=== PATIENT | male | born 1990 | race Caucasian/White ===

== ENCOUNTER 2022-10-13 21:56 | Emergency (ER) | payer BC, SELFPAY ==
--- NOTE | 2022-10-13 21:54 | ECG_ITS ---
APPROVED REPORT Bell Maker: Conclusion 1. SINUS BRADYCARDIA WITH SINUS ARRHYTHMIA 2. BORDERLINE ECG 3. UNCONFIRMED REPORT Electronically signed by : Liz Morel, 10/17/2022 12:25:10
[2022-10-13 21:58] VITALS: BP 142/88; PULSE 67; RESP 15; TEMP 37; O2SAT 99; BMI 23.1
--- NOTE | 2022-10-13 22:11 | XR_ITS ---
PROCEDURE INFORMATION: Exam: XR Chest Exam date and time: 10/13/2022 10:12 PM Age: 32 years old Clinical indication: Dyspnea TECHNIQUE: Imaging protocol: Radiologic exam of the chest. Views: 1 view. COMPARISON: No relevant prior studies available. FINDINGS: Lungs: Mild atelectasis noted in the right medial lung base. Lungs are otherwise clear. Pleural spaces: No pleural effusion. No pneumothorax. Heart/Mediastinum: Cardiac silhouette is normal in size for technique. Bones/joints: Age appropriate. IMPRESSION: Right medial basilar atelectasis, otherwise normal exam.
--- NOTE | 2022-10-13 22:11 | HMH.EDGENADL ---
Discharge Plan Disposition Patient Disposition: Home, Self-Care Condition: Good Activity Restrictions/Add. Instructions Additional Instructions/Restrictions: Please follow-up with your primary care provider. Please return to the emergency department if you develop any new or worsening symptoms or become concerned for your health. Clinical Impressions Clinical Impression: Atypical chest pain, Dizziness, Acute dehydration Discharge ED Provider: Nate Melo General Adult HPI <Nate Melo MD - Last Filed: 10/13/22 22:15> General Chief complaint: Chest Pain Stated complaint: Chest Pain Time Seen by Provider: 10/13/22 21:58 Mode of Arrival: Family Vehicle Source of Information: Patient Limitations: No Limitations Description of Symptoms (Recalled from ER Triage Doc. by RN): 32 year old male presents with sharp stabbing chest pain located in the anterior left upper side of his chest; according to him, it is reproducible by touch and aggravated by inspiration. does not radiate. denies n/v/d. denies dyspnea. afebrile. History of Present Illness HPI narrative: Patient is a 32-year-old male present today with multiple complaints. Primarily he is here for chest pain. However earlier today he had an episode of about 2 to 3 hours and felt a little bit dizzy. He had no focal neurologic deficits at that time states his symptoms have completely resolved after having several cups of water. Additionally he has been very stressed out and states that he had chest pain that started about 830 just prior to arrival. Is located left anterior chest wall no radiation into worse with touch breathing and movement. No significant exertional activity preceding today. No diaphoresis or shortness of breath associated with this. No history of coronary disease or cardiopulmonary pathology in the past. No family history of sudden cardiac at a young age. He has had no hemoptysis no lower extremity swelling no recent prolonged immobilizations. No history of DVT or PE. Related Data Allergies Allergy/AdvReac Type Severity Reaction Status Date / Time No Known Allergies Allergy Verified 10/13/22 22:02 [facility] <Nate Melo MD - Last Filed: 10/13/22 22:15> [facility] Disclaimer: The information contained in this section may have been updated after the patient was seen, as this information can be updated by other users. Social History (Updated 10/13/22 @ 22:15 by Nate Melo MD) Smoking Status: Never smoker alcohol intake: never current occupational status: other Travel in the last 8 weeks: None <Nate Melo MD - Last Filed: 10/13/22 22:15> ROS Obtained: Yes All systems reviewed & no additional complaints except as documented Physical Exam <Nate Melo MD - Last Filed: 10/13/22 22:15> General General appearance: alert and in no apparent distress Chest Chest inspection: Present tenderness (Left anterior chest wall tender to palpation worsened with external rotation of the left shoulder) Respiratory Respiratory exam: Present normal lung sounds bilaterally and respiratory distress Cardiovascular Cardiovascular exam: Present regular rate; Absent tachycardia Neurological Exam Neurological exam: Present alert and oriented X3 Medical Decision Making <Nate Melo MD - Last Filed: 10/13/22 22:15> Master Inquiry Pt receiving controlled substance: No Vital Signs: 10/13/22 21:58 Temperature 98.6 F Temperature Source Oral Pulse Rate [Right Brachial] 67 Respiratory Rate 15 Blood Pressure [Right Arm] 142/88 H Blood Pressure Mean [Right Arm] 106 Blood Pressure Source [Right Arm] Automatic Cuff Blood Pressure Position [Right Arm] Sitting 02 Sat by Pulse Oximetry 99 Oxygen Delivery Method Room Air Lab Data Lab Results 10/13/22 21:55: WBC 5.9, RBC 5.53, Hgb 15.5, Hct 49.0, MCV 88.7, MCH 28.0, MCHC 31.6 L, RDW 12.8, Plt Count 204, MPV 8.2, Neut % (Auto) 54.3, Lymph % (Auto) 34.7, Spencer % (Auto) 6.5, Eos % (Auto)
[2022-10-13 22:17] LABS: Basophils % 0.5 % (0.1-2.0); Eosinophils # 0.2 K/mm3 (0.0-0.4); Eosinophils % 3.9 % (0.1-12.0); Hemoglobin 15.5 g/dL (14.1-18.0); Lymphocytes # 2.1 K/mm3 (0.7-4.5); Lymphocytes % 34.7 % (10-50); Mean Corpuscular HGB Conc 31.6 g/dL (31.8-35.4); Mean Corpuscular Volume 88.7 fl (80-94); Mean Platelet Volume 8.2 fl (7.4-10.4); Monocytes # 0.4 K/mm3 (0.1-1.0); Monocytes % 6.5 % (1.7-9.3); Neutrophils # 3.2 K/mm3 (1.8-7.8); Neutrophils % 54.3 % (37.0-80.0); Platelet Count 204 K/mm3 (142-424); Red Blood Count 5.53 M/mm3 (4.60-6.20); Red Cell Distribution Width 12.8 % (11.5-17.5); White Blood Count 5.9 K/mm3 (4.8-10.8)
[2022-10-13 22:32] LABS: Chloride 103 mmol/L (98-107); Potassium 3.9 mmoL/L (3.5-5.1); Sodium 142 mmol/L (136-145)
[2022-10-13 22:35] LABS: Alanine Aminotransferase 29 U/L (12-78); Albumin Level 4.5 g/dl (3.5-5.0); Albumin/Globulin Ratio 1.4 (1.1-1.8); Alkaline Phosphatase 46 U/L (38-126); Anion Gap 9.9 mEq/L (5-15); Aspartate Amino Transferase 30 U/L (17-59); Bilirubin,Total 0.4 mg/dl (0.2-1.3); Blood Urea Nitrogen 24 mg/dl (9-20); Carbon Dioxide 33 mmol/L (22.0-30.0); Creatinine Clearance Estimated 112 mL/min (50-200); Estimated Glomerular Filt Rate 78 ml/min (>60); GFR (African American) 94 ML/MIN (>60); Globulin 3.2 g/dL (1.3-3.2); Total Protein,Serum 7.7 g/dl (6.3-8.2)
[2022-10-13 22:36] LABS: Calcium 9.9 mg/dl (8.4-10.2); Glucose 66 mg/dl (74-100)
[2022-10-13 22:48] LABS: Troponin I < 0.01 ng/ml (0.00-0.034)
--- NOTE | 2022-10-13 22:56 | PC.NURSE ---
Rounded on patient , no concerns voiced at this time.
--- NOTE | 2022-10-13 23:06 | PC.NURSE ---
called and left a message for [facility] to disregard prescriptions.
--- NOTE | 2022-10-13 23:43 | ECG_ITS ---
APPROVED REPORT Coil Machine Supervisor: Conclusion 1. SINUS BRADYCARDIA WITH MARKED SINUS ARRHYTHMIA 2. BORDERLINE ECG 3. UNCONFIRMED REPORT Electronically signed by : Liz Morel, 10/17/2022 12:25:55
[2022-10-14 01:31] LABS: Troponin I < 0.01 ng/ml (0.00-0.034)
--- NOTE | 2022-10-14 01:47 | PC.NURSE ---
in room talking with patient at this time.
[2022-10-14 02:00] VITALS: BP 132/78; PULSE 45; RESP 14; TEMP 36.7; O2SAT 99
== END 2022-10-14 01:50 | disposition home or self-care (01) ==
PROVIDERS: Emergency Provider Student in an Organized Health Care Education/Training Program; PCP Internal Medicine
DX: R07.9 Chest pain, unspecified (principal); E86.0 Dehydration; R42 Dizziness and giddiness
CPT/HCPCS: 71045; 80053; 84484; 85025; 93005; 96361; 96374; 99285

== ENCOUNTER → 2023-01-23 09:33 | Outpatient (CLI) | payer BC, SELFPAY ==
[2023-01-23 13:31] LABS: Hemoglobin A1C 5.4 % (4.0-6.0)
== END ==
PROVIDERS: PCP Nurse Practitioner Family; Visit Provider Nurse Practitioner Family
DX: Z13.1 Encounter for screening for diabetes mellitus (principal)
CPT/HCPCS: 83036

== ENCOUNTER 2023-05-29 16:47 | Outpatient (CLI) | payer BC, SELFPAY ==
[2023-05-29 16:57] LABS: Alanine Aminotransferase 29 U/L (12-78); Albumin/Globulin Ratio 1.8 (1.1-1.8); Alkaline Phosphatase 49 U/L (38-126); Anion Gap 13.2 mEq/L (5-15); Aspartate Amino Transferase 32 U/L (17-59); Bilirubin,Total 0.7 mg/dl (0.2-1.3); Blood Urea Nitrogen 19 mg/dl (9-20); Calcium 9.5 mg/dl (8.4-10.2); Carbon Dioxide 29 mmol/L (22.0-30.0); Chloride 103 mmol/L (98-107); Chol/HDL Ratio 5.2 (1-3.5); Cholesterol 203 mg/dl (140-200); Estimated Glomerular Filt Rate 98 ml/min (>60); GFR (African American) 118 ML/MIN (>60); Globulin 2.8 g/dL (1.3-3.2); Glucose 89 mg/dl (74-100); HDL Cholesterol 39 mg/dl (40-60); Potassium 4.2 mmoL/L (3.5-5.1); Sodium 141 mmol/L (136-145); Total Protein,Serum 7.8 g/dl (6.3-8.2); Triglycerides 76 mg/dl (30-150); VLDL Cholesterol 15 mg/dL (0-40)
[2023-05-29 17:09] LABS: Direct LDL Cholesterol 117.26 mg/dL (100-129)
== END 2023-05-29 23:59 ==
LOC: LAB.DROPOF 16:47
PROVIDERS: PCP Nurse Practitioner Family; Visit Provider Nurse Practitioner Family
DX: E78.5 Hyperlipidemia, unspecified (principal)
CPT/HCPCS: 80053; 80061